=== PATIENT | female | born 1975 | race Caucasian/White ===

== ENCOUNTER 2016-10-06 19:37 | Emergency (ER) | payer OTHER | END 2016-10-06 20:00 | disposition home or self-care (01) | LOC: ER 19:37 | DX: S16.1XXA Strain of muscle, fascia and tendon at neck level, initial encounter (principal); J45.909 Unspecified asthma, uncomplicated; F17.200 Nicotine dependence, unspecified, uncomplicated; Z88.5 Allergy status to narcotic agent; X58.XXXA Exposure to other specified factors, initial encounter | CPT/HCPCS: 96374; 99285; J2930 ==